=== PATIENT | female | born 1950 | race African-American/Black ===

== ENCOUNTER 2019-03-22 23:06 | Emergency (ER) | payer MEDICARE, OTHER ==
[2019-03-22 23:10] VITALS: BP 158/58
[2019-03-22] MEDS ORDERED: MORPHINE SULFATE 10 MG/ML SYRINGE. IM ONE (23:30)
[2019-03-22] MEDS ORDERED: ONDANSETRON ODT 4 MG TAB.RAPDIS PO ONE (23:30)
[2019-03-22] MEDS ORDERED: LIDOCAINE 1%/EPI 1:100,000 20 ML VIAL. IJ ONE (23:30)
--- NOTE | 2019-03-23 00:29 | ED.ADGEN ---
Adult General Chief Complaint Chief Complaint Abscess left axilla HPI HPI Patient is a 68-year-old -[place] female presents with an arm pit. Patient states she first noticed small bump several days ago which has grown or enlarged significantly in the past 4 days. Patient has a 4 x 2 cm fluctuant i ndurated abscess without pointing with surrounding patch of cellulitis. No fever chills nausea vomiting or sweats. No history of MRSA. Patient states she had at abscess drained in the same location 5 years ago. Patient is currently a resident of the [facility] [place] [facility]. ([] Review of Systems Review of Systems Constitutional: Denies fever or chills [] Eyes: Denies change in visual acuity, redness, or eye pain [] HENT: Denies nasal congestion or sore throat [] Respiratory: Denies cough or shortness of breath [] Cardiovascular: No additional information not addressed in HPI [] GI: Denies abdominal pain, nausea, vomiting, bloody stools or diarrhea [] : Denies dysuria or hematuria [] Musculoskeletal: Denies back pain or joint pain [] Integument: Denies rash or skin lesions [] Neurologic: Denies headache, focal weakness or sensory changes [] Endocrine: Denies polyuria or polydipsia [] All other systems were reviewed and found to be within normal limits, except as documented in this note. Current Medications Current Medications Current Medications Medications (Trade) Dose Ordered Sig/Isaiah Start Time Stop Time Status Last Admin Dose Admin Doxycycline Hyclate (Vibra-Tab) 100 mg 1X ONCE 03/23/19 00:30 03/23/19 00:31 UNV Lidocaine/ Epinephrine (Xylocaine 1%-Epi 1:100,000) 20 ml 1X ONCE 03/22/19 23:30 03/22/19 23:35 DC 03/22/19 23:30 20 ML Morphine Sulfate (Morphine 10mg Syringe) 10 mg 1X ONCE 03/22/19 23:30 03/22/19 23:35 DC 03/22/19 23:30 10 MG Ondansetron HCl (Zofran Odt) 4 mg 1X ONCE 03/22/19 23:30 03/22/19 23:35 DC 03/22/19 23:30 4 MG Allergies Allergies Allergies Coded Allergies Type Severity Reaction Last Updated Verified No Known Drug Allergies 03/22/19 No Physical Exam Physical Exam Constitutional: Well developed, well nourished, no acute distress, non-toxic ap pearance. [] HENT: Normocephalic, atraumatic, bilateral external ears normal, oropharynx moist, no oral exudates, nose normal. [] Eyes: PERRLA, EOMI, conjunctiva normal, no discharge. [] Neck: Normal range of motion, no tenderness, supple, no stridor. [] Cardiovascular:Heart rate regular rhythm, no murmur [] Lungs & Thorax: Bilateral breath sounds clear to auscultation [] Abdomen: Bowel sounds normal, soft, no tenderness, no masses, no pulsatile masses. [] Skin: Warm, dry, no erythema, no rash. [] Back: No tenderness, no CVA tenderness. [] Extremities: No tenderness, no cyanosis, no clubbing, ROM intact, no edema. [] Neurologic: Alert and oriented X 3, normal motor function, normal sensory function, no focal deficits noted. [] Psychologic: Affect normal, judgement normal, mood normal. [] Current Patient Data Vital Signs Vital Signs Date Time Temp Pulse Resp B/P (MAP) Pulse Ox O2 Delivery O2 Flow Rate FiO2 03/22/19 23:30 18 95 Room Air EKG EKG [] Radiology/Procedures Radiology/Procedures Indication: [Left axillae abscess] Procedure: The patient was positioned appropriately and the skin over the incision site was cleansed with betaine]. Local anesthesia was lidocaine with with epi 1%. A vertical incision was then made over the apex of the abscess and large amount of purulent material was expressed. Loculations were probed]. The drainage cavity was then irrigated and packed with 1 inch non-iodoform gauze . . The patient tolerated the procedure well:]. Complications: none][] Course & Med Decision Making Course & Med Decision Making Pertinent Labs and Imaging studies reviewed. (See chart for details) [successful I&D of left axillary abscess. Patient instructed to return the ED in 2 days for packing removal. Antibiotics prescribed for him and cellulitis. Return precautions reviewed.] Final Impression Final Impression [1. Abscess of left axilla 2. Cellulitis of left axilla] Dragon Disclaimer Dragon Disclaimer This electronic medical record was generated, in whole or in part, using a voice recognition dictation system. ARINA VILLASENOR DO Mar 23, 2019 00:29
[2019-03-23] MEDS ORDERED: DOXYCYCLINE HYCLATE 100 MG TABLET PO ONE (00:30)
[2019-03-23] MEDS ORDERED: DOXY100C2 PO (00:35)
== END 2019-03-23 01:15 | disposition home or self-care (01) ==
LOC: ER 23:06
DX: L02.412 Cutaneous abscess of left axilla (principal); L03.112 Cellulitis of left axilla
CPT/HCPCS: 10060; 96372; 99283; J2270; Q0162